=== PATIENT | female | born 1980 | race Caucasian/White ===

== ENCOUNTER 2017-03-05 14:15 | Outpatient (CLI) | payer BC ==
[2017-03-05 14:37] VITALS: BP 117/69
[2017-03-05 16:03] VITALS: BP 110/73
== END 2017-03-05 16:25 | disposition home or self-care (01) ==
LOC: LDRP-OP 14:15 → 2WEST 14:16 → LDRP-OP 04-17 11:59
DX: O47.1 False labor at or after 37 completed weeks of gestation (principal); Z3A.38 38 weeks gestation of pregnancy
CPT/HCPCS: 59025; G0378

== ENCOUNTER 2017-03-22 19:06 | Inpatient (IN) | payer BC ==
[~2017-03-22] VITALS: Ht 180.3 cm; Wt 113.0 kg
[2017-03-22 19:23] VITALS: BP 125/75
[2017-03-22] MEDS ORDERED: PRENATAL VITAM1 EA11 PO (19:33)
[2017-03-22] MEDS ORDERED: FOLGARD1 TABLET PO (19:35)
[2017-03-22] MEDS ORDERED: ZYRTEC10 M2 PO (19:40)
[2017-03-22 20:26] LABS: EOSINOPHIL (%) 1.6 % (0-5); EOSINOPHIL COUNT 0.3 K/uL (0-0.3); HEMATOCRIT 34.6 % (36.0-46.0); IMMATURE GRANULOCYTE (%) 0.5 % (0.0-0.7); IMMATURE GRANULOCYTE COUNT 0.1 K/uL; INSTRUMENT ABS NEUTROPHIL CT 14.6 K/uL; LYMPHOCYTE COUNT 1.7 K/uL (1.0-2.8); MCH 29.1 PG (29.0-34.0); MCHC 33.2 G/DL (30.0-36.0); MCV 87.6 FL (83-99); MEAN PLAT.VOLUME 13.7 uM^3 (9.5-12.4); MONOCYTE (%) 5.6 % (3-12); NEUTROPHIL (%) 82.6 % (45-76); NEUTROPHIL COUNT 14.6 K/uL (1.8-6.4); PLATELET COUNT 174 K/uL (156-360); RBC DIS.WIDTH-CV 14.6 % (11.8-14.6); RBC DIS.WIDTH-SD 46.3 % (39-53); RED BLOOD COUNT 3.95 M/uL (3.80-5.20); WHITE BLOOD COUNT 17.7 K/uL (4.1-10.2)
[2017-03-22 20:33] VITALS: BP 125/71
[2017-03-22 21:33] VITALS: BP 115/72
[2017-03-22 22:40] VITALS: BP 120/64
[2017-03-22 23:19] VITALS: BP 120/72
[2017-03-23] VITALS (27 sets, daily range): BP systolic 89–146; BP diastolic 52–75
[2017-03-23] MEDS ORDERED: IBUPROFEN800 MG PO (11:41)
[2017-03-24 06:55] VITALS: BP 131/72
[2017-03-24 13:50] VITALS: BP 107/60
== END 2017-03-24 21:00 | disposition home or self-care (01) | DRG 775 ==
LOC: LDRP-OP 19:06 → 2WEST 19:07 → LDRP-OP 04-17 22:08
PROVIDERS: Advanced Practice Midwife
PROC: 00HU33Z Insertion of Infusion Device into Spinal Canal, Percutaneous Approach (ICD-10-PCS; principal; 2017-03-22)
PROC: 3E0R3BZ Introduction of Anesthetic Agent into Spinal Canal, Percutaneous Approach (ICD-10-PCS; principal; 2017-03-22)
PROC: 10E0XZZ Delivery of Products of Conception, External Approach (ICD-10-PCS; 2017-03-23)
PROC: 0KQM0ZZ Repair Perineum Muscle, Open Approach (ICD-10-PCS; 2017-03-23)
DX: O71.4 Obstetric high vaginal laceration alone (principal); Z37.0 Single live birth; Z3A.40 40 weeks gestation of pregnancy; O09.523 Supervision of elderly multigravida, third trimester
CPT/HCPCS: 85025; C1755; G0378; J0595; J2405; J3010; J7120

== ENCOUNTER → 2017-03-26 | Outpatient (CLI) | payer BC ==
[~2017-03-26] MED LIST: FOLGARD1 TABLET PO; IBUPROFEN800 MG PO; PRENATAL VITAM1 EA11 PO; ZYRTEC10 M2 PO
== END | disposition home or self-care (01) ==
LOC: LAC 11:04
DX: Z39.1 Encounter for care and examination of lactating mother (principal); O92.13 Cracked nipple associated with lactation; O92.79 Other disorders of lactation
CPT/HCPCS: G0463